=== PATIENT | female | born 1940 | race Caucasian/White ===

== ENCOUNTER → 2016-05-23 | Outpatient (CLI) | payer MEDICARE ==
[~2016-05-23] VITALS: Ht 164.6 cm; Wt 86.3 kg
[~2016-05-23] MED LIST: AMIO100T4 PO; AMIO200T7 PO; CALC-52 PO; CALC600T12 PO; CHOL100018 PO; CYAN1TAB46 PO; CYAN250T PO; DABI150C PO; ESTRPATC4 TD; FERR-70 PO; LEVO75TA10 PO; METO-64 PO; OXYB5SYR2 PO; SIMV20TA80 PO
== END ==
LOC: RC 12:28
PROVIDERS: ATTEND Internal Medicine Cardiovascular Disease
DX: J98.8 Other specified respiratory disorders (principal); R06.02 Shortness of breath
CPT/HCPCS: 94060; 94726

== ENCOUNTER 2016-06-14 10:41 | Day surgery (SDC) | payer MEDICARE ==
[~2016-06-14] VITALS: Ht 166.4 cm; Wt 81.0 kg
[2016-06-14] VITALS (7 sets, daily range): BP systolic 156–192; BP diastolic 40–74; PULSE 57–63; RESP 12–20; TEMP 97–98.6; O2SAT 92–99; Ht 166.4 cm; Wt 81.0 kg
[~2016-06-14 10:41] MED LIST changes: -AMIO100T4 PO; -CALC600T12 PO; -CYAN1TAB46 PO; -ESTRPATC4 TD; +LIDOCAINE 1% (10mg/ml) 2ml SDV INJ ONE; +LR 1,000 ML IV SCH
--- NOTE | 2016-06-14 12:28 | ANESPREOP ---
Anesthesia Record Date and Time DATE: 06/14/16 TIME: 12:26 Proposed Surgical Procedure COLONOSCOPY & EGD NPO since: mn Allergies: Coded Allergies: No Known Allergies (Unverified , 09/04/11) Ht/Wt/BMI Height: 5 ' 5.50 " Weight: 81.000 kg BMI: 29.3 kg/m2 Vital Signs Date Time Temp Pulse Resp B/P Pulse Ox O2 Delivery O2 Flow Rate FiO2 06/14/16 11:20 14 06/14/16 11:04 98.6 63 192/74 92 Room Air Medications Inpatient Medications Current Medications Medications (Trade) Dose Ordered Sig/Malvin Start Time Stop Time Status Last Admin Dose Admin Lactated Ringer's (Lactated Ringers) 1,000 ml @ 50 mls/hr Q20H 06/14/16 07:00 Amiodarone HCl (Pacerone) 200 Mg Tablet, 200 MG PO DAILY Last Taken: on 06/13/160 Calcium Carbonate (Calcium) 500 Mg Tablet, 1 TAB PO DAILY, (Reported) Last Taken: on 06/12/162099 Cholecalciferol (Vitamin D3) 1,000 Unit Tablet , 1 TAB PO DAILY, (Reported) Last Taken: on 06/12/162099 Cyanocobalamin (Vitamin B-12) (Vitamin B-12) 250 Mcg Tablet, 1 TAB PO DAILY, (Reported) Last Taken: on 06/12/162099 Dabigatran Etexilate Mesylate (Pradaxa) 150 Mg Capsule, 1 CAP PO BID, (Reported) TAKE WITH FULL GLASS OF WATER. Do not break, chew, open cap. Last Taken: on 06/06/16 Ferrous Sulfate (Ferrous Sulfate) 325 Mg Tablet, 1 TAB PO WB, (Reported) BEST WITH FOOD. Last Taken: on 06/12/16 Levothyroxine Sodium (Levothyroxine Sodium) 75 Mcg Tablet, 75 MCG PO ACB, (Reported) Once daily before breakfast. Last Taken: on 06/13/16 0700 Metoprolol Succinate (Toprol Xl) 50 Mg Tab.sr.24h, 50 MG PO HS, (Reported) Last Taken: on 06/13/16 2130 Oxybutynin (Oxybutynin Chloride) 5 Mg/5 Ml Syrup, 5 MG PO DAILY, (Reported) Last Taken: on 06/12/162099 Simvastatin (Zocor) 20 Mg Tablet, 20 MG PO PC, (Reported) Last Taken: on 06/13/162129 Currently on Beta Kaveh: Yes Beta Kaveh Last Taken: 06/13/162099 Medical/Surgical History Anesthesia PMH: Reports: *Hypertension (controlled with meds), Cardiac Arrythmia (history of A Fib.), Clotting Problems (RECENT ANTI-COAGULATION WITH PRADAXA, HELD at this time ), Hyperlipidemia, Thyroid Disease (hypothyroidism) Smoking Status: Former smoker Has pt. smoked today?: No # of Packs per Day: 1 # of Years: 35 Use Chewing Tobacco?: No Second Hand Exposure: No Substance Use Type: does not use Alcohol Intake: none HX of Last Menstrual Period: ABD. HYST. Past Surgical History Orthopedic Surgeries: No Abdominal Surgeries: Yes - TANJA, APPY,ABD. HYST. Genitourinary Surgeries: No Cardiac Surgeries: Yes - CARDIOVERSION Endocrine Surgeries: No Reproductive Surgeries: Yes - ABD. HYST. , OPEN EXC. BIOPSY OF LT BREAST FIBROCYSCTIC MASS Neurological Surgeries: Yes - L eye; repair hole in retina Ear Surgeries: No Nose Surgeries: No Throat Surgeries: No Other Surgeries: Yes - EXC. OF LIPOMA, COLONOSCOPY Anesthesia Adverse Reactions: FOUND none Family Hx of Anesthesia Advers: none Hx of Motion Sickness: No Physical Exam Respiratory: Bilat breath sounds equal, Lungs clear Cardiovascular: FOUND Regular rate, rhythm Airway Assessment Mallampati Score: I TMD: 3 Fingerbreadths Neck Extension: Fair Teeth: Upper Dentures, Lower Dentures ASA: 3 Plan Anesthesia Plan: TIVA, LMA, GETA Discussion Discussed risks/options/alternatives of anesthesia and questions answered. Patient consents. Nursing pain assessment noted. Present: Family Member Attestation Statement Prior to the delivery of any anesthetic medication, I examined the patient, developed the plan, obtained the patient's consent and discussed the risk and benefits of the procedure with the patient/guardian. BHAVIN HUNTLEY CRNA Jun 14, 2016 12:28
[2016-06-14] MEDS ORDERED: BENZOCAINE 20% Top. Anesth. SPRAY UD ONE (13:26)
[2016-06-14] MEDS ORDERED: LIDOCAINE VISCOUS 2% Oral Soln 15ml UD ONE (13:26)
[2016-06-14] MEDS ORDERED: PROPOFOL 500mg 50 ML IV ONE (13:32)
--- NOTE | 2016-06-14 14:27 | ANESPO ---
Post-Op Note Date 06/14/16 Time: 14:25 Status Pt Participated in Evaluation: Pt participated in person Vital Signs Date Time Temp Pulse Resp B/P Pulse Ox O2 Delivery O2 Flow Rate FiO2 06/14/16 14:14 97.0 59 12 168/71 98 Mask 6.00 Respiratory Function: Airway patent, Regular respirations Cardiovascular Function: Regular pulse Mental Status: Alert/oriented Pain Level Intensity: 0 Hydration: Taking po fluids Complications during Recovery None apparent Follow-Up Instructions Instructions Per Surgeon EDUAR PISANO [employer] STUDENT Jun 14, 2016 14:26
--- NOTE | 2016-06-14 14:32 | GSPOSTPROC ---
Immediate Operative Note DATE: 06/14/16 TIME: 14:31 Postop Diagnosis: Anemia Surgical Procedure: EGD, C-scope Surgeon: Gilles ASA: 3 ABBY GRANADOS MD Jun 14, 2016 14:32
--- NOTE | 2016-06-15 10:21 | OPNOTEF ---
DATE 06/14/2016 PREOPERATIVE DIAGNOSES 1. Anemia. 2. Colonic diverticulosis. 3. Internal and external hemorrhoids. POSTOPERATIVE DIAGNOSES 1. Anemia. 2. Colonic diverticulosis. 3. Internal and external hemorrhoids. OPERATION Esophagogastroduodenoscopy and total colonoscopy SURGEON Dr. Gilles CARNES [facility] ASA CLASS 3 FINDINGS No abnormalities were found at the upper gastrointestinal tract.. Findings were normal at the esophagus, stomach and duodenum. No source for bleeding which would lead to anemia was found at the upper gastrointestinal tract. There were no colon or rectal tumors. There were no colon or rectal polyps. There were no colonic angiodysplasia lesions. There was no inflammatory bowel disease at the colon. The patient does have extensive left-sided colonic diverticulosis. The patient does have some internal and external hemorrhoids. No bright red blood or old blood was seen at the colon or rectum. No source for bleeding which would lead to anemia was found at the colon or rectum at total colonoscopy. No source for the anemia was found at either esophagogastroduodenoscopy or colonoscopy today. DESCRIPTION OF OPERATION The patient was brought to the endoscopy room. The patient was placed on a cart in the endoscopy room. The patient was placed in left lateral recumbent position on the cart in the endoscopy room. The Olympus upper GI endoscope was used. The upper GI endoscope was introduced into the esophagus. The upper GI endoscope was advanced down through the esophagus and stomach and into the duodenum. The upper GI endoscope was then withdrawn from the duodenum back into the stomach. The upper GI endoscope was retroflexed and the gastroesophageal junction was viewed from below. The upper GI endoscope was straightened out. Stomach was examined further. The upper GI endoscope was then withdrawn out through the stomach and esophagus and removed from the patient. The patient was kept in left lateral recumbent position on the cart in the endoscopy room. The patient continued to receive intravenous sedation medication administered by the nurse blunger loader. Total colonoscopy was performed. The Olympus colonoscope was used. The colonoscope was introduced into the rectum. The colonoscope was advanced up through the rectum and colon all the way up to the cecum. The appendiceal orifice was visualized. The ileocecal valve was visualized. The colonoscope was then withdrawn out through the colon and rectum and removed from the patient. Digital rectal examination was performed. Findings throughout the procedure were as described above. The patient did continue to receive intravenous sedation medication administered by the nurse blunger loader throughout the operation. The patient did tolerate the operation well. RECOMMENDATION Followup colonoscopy again in 10 years. JESSICA
== END 2016-06-14 15:15 | disposition home or self-care (01) ==
LOC: SCU 10:41
PROVIDERS: ATTEND Surgery
DX: D64.9 Anemia, unspecified (principal); K57.30 Diverticulosis of large intestine without perforation or abscess without bleeding; K64.8 Other hemorrhoids; K64.4 Residual hemorrhoidal skin tags; I10 Essential (primary) hypertension; E78.5 Hyperlipidemia, unspecified; I48.2 Chronic atrial fibrillation; Z79.899 Other long term (current) drug therapy; Z79.02 Long term (current) use of antithrombotics/antiplatelets; Z87.891 Personal history of nicotine dependence

== ENCOUNTER → 2016-06-20 | Outpatient (CLI) | payer MEDICARE ==
[~2016-06-20] MED LIST changes: -LIDOCAINE 1% (10mg/ml) 2ml SDV INJ ONE; -LR 1,000 ML IV SCH
--- NOTE | 2016-06-20 09:48 | DI ---
INDICATION: ITS.REASON: R06.02 SHORTNESS OF BREATH PROCEDURE: CHEST 2-VIEWS UPRIGHT (PA \T\ LAT) Encounter: Initial COMPARISON: Two-view chest, 10/07/2014 FINDINGS: There is subtle infiltrate suspected in the right perihilar projection. This extends somewhat into the right base. This may be of a groundglass nature. There is no pleural effusion or pneumothorax. The heart size, mediastinal contours and pulmonary vascularity are within normal limits. There are advanced degenerative changes of the spine. 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 IMPRESSION: Subtle right perihilar infiltrate suspected. Follow-up warranted. .
== END ==
LOC: IMA 09:20
PROVIDERS: ATTEND Internal Medicine Cardiovascular Disease
DX: R91.8 Other nonspecific abnormal finding of lung field (principal); R06.02 Shortness of breath

== ENCOUNTER → 2016-06-29 | Outpatient (CLI) | payer MEDICARE ==
[2016-06-29 15:34] LABS: BLOOD, URINE 3+ (NEGATIVE); COLOR,URINE YELLOW (YELLOW); LEUKOCYTE ESTERASE ,URINE 2+ (NEGATIVE); NITRITE,URINE NEGATIVE (NEGATIVE); UROBILINOGEN,URINE 0.2 EU/DL (NORMAL)
[2016-06-29 15:40] LABS: BACTERIA,URINE NONE SEEN (NEGATIVE)
== END ==
LOC: LABN 15:19
PROVIDERS: ATTEND Internal Medicine Medical Oncology
DX: D50.9 Iron deficiency anemia, unspecified (principal)
CPT/HCPCS: 81001

== ENCOUNTER → 2016-08-01 | Outpatient (CLI) | payer MEDICARE ==
--- NOTE | 2016-08-01 10:50 | DI ---
Indication: ITS.REASON: D50.9 Iron deficiency anemia, unspecified; E83.19 Other di; R71.0 PROCEDURE: US RENAL: Encounter: Initial Comparison: None Technique: Grayscale and color Doppler sonographic imaging of both kidneys was performed. FINDINGS: Both kidneys are present with normal cortical thickness and echogenicity. No evidence for collecting system dilatation, contour deforming mass, nephrolithiasis, or abnormal perinephric fluid collection. The right kidney measures 10.7.4.3.5.8 cm in length, and the left kidney measures 10.9.4.8.4.9 cm in length. Color Doppler imaging does not demonstrate any vascular abnormality. Both arterial and venous flow is documented. IMPRESSION: Normal renal sonogram. .
== END ==
LOC: IMA 09:41
PROVIDERS: ATTEND Internal Medicine Medical Oncology
DX: D50.9 Iron deficiency anemia, unspecified (principal)

== ENCOUNTER → 2016-08-10 | Outpatient (CLI) | payer MEDICARE ==
[2016-08-10 11:18] LABS: BASOPHILS % (AUTO) 0.5 % (0-2); BLOOD, URINE NEGATIVE (NEGATIVE); COLOR,URINE YELLOW (YELLOW); EOSINOPHILS # (AUTO) 0.4 T/MM3 (0-0.5); EOSINOPHILS % (AUTO) 6.3 % (0-4); HCT - HEMATOCRIT 42.6 % (36-46); HGB - HEMOGLOBIN 13.6 GM/DL (12-16); IMMATURE GRANULOCYTE # (AUTO) 0.01 T/MM3 (0.00-0.03); IMMATURE GRANULOCYTE % (AUTO) 0.2 % (0.0-0.5); LEUKOCYTE ESTERASE ,URINE NEGATIVE (NEGATIVE); LYMPHOCYTES # (AUTO) 0.9 T/MM3 (1-4.8); LYMPHOCYTES % (AUTO) 16.1 % (23-45); MEAN CORPUSCULAR HGB 28.6 UUG (26-34); MEAN CORPUSCULAR HGB CONC(MCHC 31.9 GM/DL (31-37); MEAN CORPUSCULAR VOLUME 89.7 UM3 (80-100); MEAN PLATELET VOLUME 10.7 UM3 (9.4-12.4); MONOCYTES # (AUTO) 0.5 T/MM3 (0-0.8); MONOCYTES % (AUTO) 9.4 % (0-9.0); NEUTROPHILS #(AUTO)-ABSOLUTE 3.9 T/MM3 (1.8-7.7); NEUTROPHILS % (AUTO) 67.5 % (33-66); NITRITE,URINE NEGATIVE (NEGATIVE); RED BLOOD COUNT 4.75 M/MM3 (4.00-5.20); WBC - WHITE BLOOD COUNT 5.7 T/MM3 (4.5-11.0)
[2016-08-12 02:49] LABS: FERRITIN 25.7 NG/ML (11-264)
== END ==
LOC: LAB 10:41
PROVIDERS: ATTEND Internal Medicine Medical Oncology
DX: D50.9 Iron deficiency anemia, unspecified (principal)
CPT/HCPCS: 36415; 81003; 82728; 83540; 83550; 85025

== ENCOUNTER 2017-11-13 15:46 | Observation (INO) ==
--- NOTE | 2017-11-13 16:17 | Emergency Department Report ---
Asthma HPI - General Chief Complaint: Dizziness <Christine Loza 11/13/17 16:19> Stated Complaint: soa, dizzy <Christine Loza 11/13/17 16:19> Source: patient <Christine Loza 11/13/17 16:19> Mode of arrival: ambulatory <Christine Loza 11/13/17 16:19> Limitations: no limitations <Christine Loza 11/13/17 16:19> - History of Present Illness HPI Narrative: Pt presents a couple of hours after she became SOA and developed a headache toward the end of her swim class this afternoon. Pt has a history of A fib and has been cardioverted twice in the past. She states when she is in A fib she just "doesn't feel well" but does not necessarily have specific symptoms of diaphoresis or palpitations. Pt states after class she drove home and tried to rest. When her daughter arrived and she was getting ready to come to the ER she again began to have SOA. Pt denies chest pain, cough, nausea, vomiting, diarrhea , palpitations, diaphoresis, or recent illness. Pt still does have a slight headache. <Christine Loza 11/13/17 16:19> MD complaint: shortness of breath <Christnie Loza 11/13/17 16:19> Onset (ago): hour(s) <Christine Loza 11/13/17 16:19> Context: exercise <Christine Loza 11/13/17 16:19> - Related Data Home Medications Medication Instructions Recorded Confirmed Aspirin/Acetaminophen/Caffeine 1 tab PO Q4H PRN 09/08/16 11/13/17 [Excedrin Extra Strength Caplet] Oxybutynin Chloride 5 mg PO HS 09/08/16 11/13/17 Amiodarone HCl 200 mg PO HS 11/13/17 11/13/17 Calcium Carbonate [Calcium] 500 mg PO DAILY 11/13/17 11/13/17 Cholecalciferol (Vitamin D3) 1,000 unit PO DAILY 11/13/17 11/13/17 [Vitamin D3] Cyanocobalamin (Vitamin B-12) 250 mcg PO DAILY 11/13/17 11/13/17 [Vitamin B-12] Dabigatran [Pradaxa] 150 mg PO BID 11/13/17 11/13/17 Levothyroxine Sodium 75 mcg PO DAILY 11/13/17 11/13/17 Lisinopril [Prinivil] 10 mg PO HS 11/13/17 11/13/17 Metoprolol Succinate [Toprol Xl] 50 mg PO HS 11/13/17 11/13/17 Omeprazole Magnesium [Prilosec Otc] 20 mg PO DAILY 11/13/17 11/13/17 Simvastatin 20 mg PO HS 11/13/17 11/13/17 <Christine Loza 11/13/17 16:19> Allergies Allergy/AdvReac Type Severity Reaction Status Date / Time No Known Allergies Allergy Verified 11/13/17 16:38 <Christine Loza 11/13/17 16:19> Review of Systems All systems: reviewed and negative except as stated <Christine Loza 16:19> Constitutional: Reports: as per HPI <Christine Loza 11/13/17 16:19> Cardiovascular: Reports: as per HPI <Christine Loza 11/13/17 16:19> Respiratory: Reports: as per HPI <Christine Loza 11/13/17 16:19> Gastrointestinal: Reports: as per HPI <Christine Loza 11/13/17 16:19> Neurological: Reports: as per HPI <Christine Loza 11/13/17 16:19> [facility] Patient Stated Medical History Cataracts Yes Cardiac Arrhythmia Yes: A Fib history Heart Murmur Yes Hypertension Yes Sleep Apnea No <Christine Loza 11/13/17 16:19> Surgical History: Multiple cardioversions for atrial fibrillation. Hysterectomy with bilateral salpingo-oophorectomy. That he zero lysis. Multiple lipoma removals. Multiple colonoscopies. GRACE for cardioversion < Christine Loza 11/13/17 16:19> - Social History Smoking status: Former smoker <Christine Loza 11/13/17 16:19> second hand exposure: No <Christine Loza 11/13/17 16:19> Substance use type: does not use <Christine Loza 11/13/17 16:19> Alcohol intake frequency: does not drink <Christine Loza 11/13/17 16:19> Does patient use chewing tobacco?: No <Christine Loza 11/13/17 16:19> Physical Exam - Limitations Limitations: no limitations <Christine Loza 11/13/17 16:19> - General General appearance: alert, in no apparent distress <Christine Loza 11/13 16:19> - Normal Exams: Head:: Normocephalic without trauma <Christine Loza 11/13/17 16:19> Eyes:: Pupils are PERRLA w/ EOMI <Christine Loza 11/13/17 16:19> Neck:: Full range of motion <Christine Loza 11/13/17 16:19> Chest/Respirations:: Clear all chang, with good airflow, and symmetry bilaterally <Christine Loza 11/13/17 16:19> Cardiovascular:: Regular rate and rhythm, without murmur or gallop, Pulses 2+ all extremities, capillary refill, <2 seconds all extremities <Christine Loza 11/13/17 16:19> Abdomen:: Bowel sounds positive, soft, non-tender, non-distended <Christine Loza 11/13/17 16:19> Musculoskeletal:: No tenderness, or deformity noted, good range of motion, all extremities <Christine Loza 11/13/17 16:19> Integumentary:: No rashes <Christine Loza 11/13/17 16:19> Neurological:: Patient is alert, and oriented, cranial nerves, motor/sensory/ cerebellar, exams w/o gross deficits, to observation <Christine Loza 16:19> Psychiatric:: Patient exhibits, appropriate attention, emotion and affect < Christine Loza 11/13/17 16:19> Course Vital Signs Temperature 98.2 F 08/20/18 15:47 Pulse Rate 68 11/13/17 15:47 Respiratory Rate 20 11/13/17 15:47 Blood Pressure 186/82 H 11/13/17 15:47 Pulse Oximetry 96 11/13/17 15:47 Temperature 98.2 F 11/13/17 15:47 Pulse Rate 57 L 11/13/17 18:30 Respiratory Rate 20 11/13/17 18:30 Blood Pressure 184/82 H 11/13/17 18:30 Pulse Oximetry 96 11/13/17 18:30 <Christine Loza 11/13/17 16:19> Dyspnea - MDM Narrative Medical decision making narrative: Lab, EKG, and X ray results reviewed. Troponin repeated and found to be elevated. Dr Jaimes notified and at bedside. Pt to be admitted observation. Will obtain CTA and start Lovenox per Dr Jaimes request. Plan discussed with pt who voices understanding <Christine Loza 11/13/17 19:12> - Differential Diagnosis Differential diagnosis: Likely: Acute asthmatic bronchitis (atrial fib, AMI), Pneumonia, COPD exacerbation <Christine Loza 11/13/17 16:19> - Lab Data Attestation: I reviewed the patient's lab results. <Christine Loza 11/13 19:12> Result diagrams: 11/13/17 16:37 11/13/17 16:37 <Christine Loza 11/13/17 16:19> Lab Results 11/13/17 11/13/17 11/13/17 Range/Units 16:37 16:37 18:14 WBC 8.5 (4.5-11.0) T/MM3 RBC 4.23 (4.00-5.20) M/MM3 Hgb 10.1 L (12-16) GM/DL Hct 33.9 L (36-46) % MCV 80.1 (80-100) UM3 MCH 23.9 L (26-34) UUG MCHC 29.8 L (31-37) GM/DL RDW Std Deviation 45.7 (36.9-50.2) FL Plt Count 203 (130-400) T/MM3 MPV 11.3 (9.4-12.4) UM3 Immature Gran % (Auto) 0.2 (0.0-0.5) % Neut % (Auto) 80.5 H (33-66) % Lymph % (Auto) 9.7 L (23-45) % [place] % (Auto) 7.2 (0-9.0) % Eos % (Auto) 2.0 (0-4) % Baso % (Auto) 0.4 (0-2) % Neut # (Auto) 6.9 (1.8-7.7) T/MM3 Lymph # (Auto) 0.8 L (1-4.8) T/MM3 [place] # (Auto) 0.6 (0-0.8) T/MM3 Eos # (Auto) 0.2 (0-0.5) T/MM3 Baso # (Auto) 0.0 (0-0.2) T/MM3 Abs Immat Gran (auto) 0.02 (0.00-0.03) T/MM3 Turbidity < 20 (0-20) Sodium 143 (136-146) MEQ/L Potassium 4.1 (3.6-5) MEQ/L Chloride 106 (98-107) MEQ/L Carbon Dioxide 26 (22-30) MEQ/L Anion Gap 11 (5-15) meq/L BUN 24.0 H (7-17) MG/DL Creatinine 0.9 (0.7-1.2) mg/dL Estimated Creat Clear 51 (>50) mL/min GFR Calculation 61 (>60) mL/min BUN/Creatinine Ratio 27 H (6-26) RATIO Glucose 111 H (65-110) MG/DL Calculated Osmolality 280 (261-280) MOSM/KG Calcium 9.5 (8.4-10.2) MG/DL Total Bilirubin 0.40 (0.20-1.30) MG/DL Icterus Index < 2 (0-7) AST 27 (14-36) U/L ALT 20 (1-35) U/L Alkaline Phosphatase 69 (38-126) U/L Troponin I 0.037 0.054 (0-0.12) ng/ml Total Protein 7.3 (6.3-8.2) g/dL Albumin 4.3 (3.5-5.0) g/dL Globulin 3.0 (2.4-3.6) G/DL Albumin/Globulin Ratio 1.4 (1.1-2.2) RATIO Specimen Hemolysis 19 < 15 (0-25) <Christine Loza 11/13/17 19:12> - Radiology Data Attestation: I reviewed the patient's radiology results. <Christine Loza 11/13/17 19:12> - EKG Data EKG #1 EKG attestation: Yes: I reviewed and interpreted this EKG. <Christine Loza 11/13/17 19:12> Yes: I reviewed and interpreted this EKG. [facility] 17:10> EKG shows normal: sinus rhythm, axis, intervals, QRS complexes, ST-T waves < July,[facility] 11/13/17 17:10> Rate [ED.COU.EKR]: normal <July,[facility] 11/13/17 17:10> P waves: LAE <July,[facility] 11/13/17 17:10> Interpretation: no acute changes <July,[facility] 11/13/17 17:10> Disposition Clinical Impression: Elevated troponin Dyspnea Qualifiers: Dyspnea type: other forms of dyspnea Qualified Code(s): R06.09 - Other forms of dyspnea <Christine Loza 11/13/17 19:12> Disposition: 02 To [facility] <Christine Loza 11/13/17 19:12> Condition: Stable <Christine Loza 11/13/17 19:12> Instructions: <Christine Loza 11/13/17 16:19> Prescriptions: No Action Oxybutynin Chloride 5 mg PO HS Lisinopril [Prinivil] 10 mg PO HS Amiodarone HCl 200 mg PO HS Levothyroxine Sodium 75 mcg PO DAILY Cyanocobalamin (Vitamin B-12) [Vitamin B-12] 250 mcg PO DAILY Calcium Carbonate [Calcium] 500 mg PO DAILY Simvastatin 20 mg PO HS Dabigatran [Pradaxa] 150 mg PO BID Metoprolol Succinate [Toprol Xl] 50 mg PO HS Omeprazole Magnesium [Prilosec Otc] 20 mg PO DAILY Aspirin/Acetaminophen/Caffeine [Excedrin Extra Strength Caplet] 1 tab PO Q4H PRN PRN Reason: Pain Cholecalciferol (Vitamin D3) [Vitamin D3] 1,000 unit PO DAILY <Christine Loza 11/13/17 16:19> Referrals: Lise Arriaza, [Primary Care Provider] - <Christine Loza 11/13/17 16:19> Forms: <Christine Loza 11/13/17 16:19> Time of Disposition: 19:12 <Christine Loaz 11/13/17 19:12> - Seen By: midlevel <Christine Loza 11/13/17 19:12>
[2017-11-13] MEDS: ACETAMINOPHEN 500 MG TABLET PO PRN (16:25)
[2017-11-13] MEDS: SALINE FLUSH 10ml SYRINGE IVF PRN ×3 (16:35→21:29)
--- NOTE | 2017-11-13 16:36 | XRay Report ---
EXAM: XR chest 2V COMPARISON: 06/20/2016. 10/07/2014. HISTORY: SOA . FINDINGS:EKG leads and wires project over the chest. The cardiomediastinal silhouette is within limits of normal. The pulmonary vascularity appears unremarkable. Increased interstitial markings are noted at the mid to lower lungs which appear more conspicuous compared to 10/07/2014 and slightly more conspicuous than 06/20/2016. This could be related to pneumonitis or early congestion. There is no evidence for pleural effusion. There is no evidence for a pneumothorax. Endplate sclerosis and spurring is seen of the thoracic spine. IMPRESSION: Increased interstitial markings are seen at the mid to lower lungs which could be related to pneumonitis or early congestive change. Clinical correlation is suggested. [place] [facility] [place]
[2017-11-13] MEDS ORDERED: ENOXAPARIN 100 MG/ML INJECTION SQ ONE (19:05)
[2017-11-13] MEDS ORDERED: SALINE FLUSH 10ml SYRINGE ONE (19:26)
[2017-11-13] MEDS ORDERED: IOHEXOL 350mg/ml 75ml INJECTION ONE (19:26)
[2017-11-13 20:14] VITALS: BMI 31.7
[2017-11-13] MEDS ORDERED: KETOROLAC 30 MG/ML INJECTION IVP ONE (20:53)
[2017-11-13] MEDS ORDERED: SIMVASTATIN 20 MG TABLET PO SCH (21:00)
[2017-11-13] MEDS ORDERED: AMIODARONE 200 MG TABLET PO SCH (21:00)
[2017-11-13] MEDS ORDERED: LISINOPRIL 10 MG TABLET PO SCH (21:00)
[2017-11-13] MEDS: APAP/ASA/Caffeine 1 TAB PO PRN (21:27)
[2017-11-14] MEDS: ACETAMINOPHEN 500 MG TABLET PO PRN (03:23)
[2017-11-14] MEDS: APAP/ASA/Caffeine 1 TAB PO PRN ×2 (07:41→12:08)
--- NOTE | 2017-11-14 08:31 | CT Scan Report ---
Indication: SOA PROCEDURE: CT angio pulm emboli: Encounter: Initial Comparison: None Technique: Axial CT pulmonary angiographic phase images were performed through the chest after the administration of intravenous contrast. Coronal and Sagittal MIP reconstructed images were created and reviewed. Automated Exposure Control and Iterative Reconstruction dose reducing techniques were utilized. Contrast: Omnipaque 350 73 mL Findings: Pulmonary arteries: Exam is diagnostic to the subsegmental pulmonary arterial level. No filling defects identified to suggest a pulmonary embolus. Pulmonary arteries are enlarged suggesting pulmonary artery hypertension. Other findings: Groundglass opacities seen in the lower lobes. No lobar pneumonia. No pneumothorax or effusion. The central airways are patent. No axillary or mediastinal adenopathy. Heart is enlarged. No pericardial effusion. The upper abdomen shows no acute findings. Impression: No pulmonary embolus. Lower lobe groundglass infiltrates could represent mild edema or atypical/viral pneumonia. There is a preliminary report by virtual radiologic. .
[2017-11-14] MEDS ORDERED: CALCIUM CARBONATE 500 MG TABLET PO SCH (09:00)
[2017-11-14] MEDS ORDERED: CYANOCOBALAMIN (B-12) 500mcg TABLET PO SCH (09:00)
[2017-11-14] MEDS ORDERED: OMEPRAZOLE 20 MG CAPSULE PO SCH (09:00)
--- NOTE | 2017-11-14 10:41 | Cardiology History & Physical ---
History of Present Illness Chief complaint: SOA HPI: Cherry is a 76 year old female who is well known to Dr. Jaimes's practice with a history of PAF, nonrheumatic and tricuspid insufficiency, carotid artery stenosis, HTN and HLD who presented to the ED after she became SOA and developed a headache toward the end of her swim class. She denied chest pain, cough, nausea, vomiting, diarrhea, palpitations, diaphoresis, or recent illness. EKG showed SR, LAE. Troponin X2 in ED were negative. CTA for PE showed no pulmonary embolus, lower lobe ground glass infiltrates could represent mild edema or atypical/viral pneumonia. Dr. Jaimes was consulted and examined her, by exam she has moderate . She was admitted for observation and further evaluation of and Dyspnea. Review of Systems - Constitutional Constitutional: Absent: chills, fatigue, fever(s) - EENMT Eyes: Absent: change in vision Balance: Absent: vertigo Mouth/Throat: Absent: sore throat - Cardiovascular Cardiovascular: Present: dyspnea on exertion, heart murmur. Absent: chest pain , palpitations, syncope, orthopnea, edema Rhythm: Present: abnormal rhythm Vascular: Absent: pedal edema - Respiratory Respiratory: Present: dyspnea, dyspnea on exertion. Absent: cough - Gastrointestinal Gastrointestinal: Absent: abdominal pain, diarrhea, nausea, vomiting - Genitourinary Genitourinary: Absent: dysuria - Integumentary/Breasts Integumentary: Absent: rash - Neurological Neurological: Absent: dizziness - Endocrine Endocrine: Absent: palpitations PFSH Patient Stated Medical History Cataracts Yes Cardiac Arrhythmia Yes: A Fib history Heart Murmur Yes Hypertension Yes Sleep Apnea No Surgical History: Multiple cardioversions for atrial fibrillation. Hysterectomy with bilateral salpingo-oophorectomy. That he zero lysis. Multiple lipoma removals. Multiple colonoscopies. GRACE for cardioversion Family History: Father - heart disease, in his 70s Mother - Arrhythmia, in her 80's - Social History Smoking status: Former smoker second hand exposure: No Substance use type: does not use Alcohol intake frequency: does not drink Does patient use chewing tobacco?: No Medications Home Medications Medication Instructions Recorded Confirmed Type Aspirin/Acetaminophen/Caffeine 1 tab PO Q4H PRN 09/08/16 11/13/17 History [Excedrin Extra Strength Caplet] Oxybutynin Chloride 5 mg PO HS 09/08/16 11/13/17 History Amiodarone HCl 200 mg PO HS 11/13/17 11/13/17 History Calcium Carbonate [Calcium] 500 mg PO DAILY 11/13/17 11/13/17 History Cholecalciferol (Vitamin D3) 1,000 unit PO DAILY 11/13/17 11/13/17 History [Vitamin D3] Cyanocobalamin (Vitamin B-12) 250 mcg PO DAILY 11/13/17 11/13/17 History [Vitamin B-12] Dabigatran [Pradaxa] 150 mg PO BID 11/13/17 11/13/17 History Levothyroxine Sodium 75 mcg PO DAILY 11/13/17 11/13/17 History Lisinopril [Prinivil] 10 mg PO HS 11/13/17 11/13/17 History Metoprolol Succinate [Toprol Xl] 50 mg PO HS 11/13/17 11/13/17 History Omeprazole Magnesium [Prilosec Otc] 20 mg PO DAILY 11/13/17 11/13/17 History Simvastatin 20 mg PO HS 11/13/17 11/13/17 History Allergies Allergy/AdvReac Type Severity Reaction Status Date / Time No Known Allergies Allergy Verified 11/13/17 16:38 Exam Vital signs: Temperature 97.9 F 11/14/17 00:32 Pulse Rate 53 L 11/14/17 08:00 Respiratory Rate 16 11/14/17 07:21 Blood Pressure 164/80 H 11/14/17 08:00 Pulse Oximetry 99 11/14/17 07:21 - Constitutional no acute distress, well nourished, cooperative - Routine HEENT Exam Head: Present: normocephalic ENT: Present: mucous membranes moist - Routine Neck Exam Absent: JVD, carotid bruit - Routine Chest/Breast/Axilla Exam Chest wall: Absent: tenderness - Routine Respiratory Exam Present: CTA bilaterally. Absent: dyspnea, rales, wheezes - Routine Cardiovascular Exam Present: RRR, murmur (I/) - Routine Abdominal Exam Present: soft, non tender - Routine Extremities Exam Present: no edema - Routine Skin Exam Present: intact, dry, warm - Routine Neurological Exam Present: alert, oriented X3 - Routine Psychiatric Exam Present: normal affect, normal thought process Results 11/14/17 03:55 11/14/17 03:55 Cardiac Enzymes 11/13/17 11/13/17 11/14/17 Range/Units 16:37 18:14 03:55 AST 27 (14-36) U/L Troponin I 0.037 0.054 0.039 (0-0.12) ng/ml CBC 11/13/17 11/14/17 Range/Units 16:37 03:55 WBC 8.5 6.2 (4.5-11.0) T/MM3 RBC 4.23 4.16 (4.00-5.20) M/MM3 Hgb 10.1 L 9.8 L (12-16) GM/DL Hct 33.9 L 32.9 L (36-46) % Plt Count 203 195 (130-400) T/MM3 Neut # (Auto) 6.9 4.1 (1.8-7.7) T/MM3 Lymph # (Auto) 0.8 L 1.0 (1-4.8) T/MM3 [place] # (Auto) 0.6 0.7 (0-0.8) T/MM3 Eos # (Auto) 0.2 0.4 (0-0.5) T/MM3 Baso # (Auto) 0.0 0.0 (0-0.2) T/MM3 Comprehensive Metabolic Panel 11/13/17 11/14/17 Range/Units 16:37 03:55 Sodium 143 142 (136-146) MEQ/L Potassium 4.1 4.1 (3.6-5) MEQ/L Chloride 106 108 H (98-107) MEQ/L Carbon Dioxide 26 25 (22-30) MEQ/L BUN 24.0 H 22.0 H (7-17) MG/DL Creatinine 0.9 0.8 (0.7-1.2) mg/dL Glucose 111 H 86 (65-110) MG/DL Calcium 9.5 9.3 (8.4-10.2) MG/DL AST 27 (14-36) U/L ALT 20 (1-35) U/L Alkaline Phosphatase 69 (38-126) U/L Total Protein 7.3 (6.3-8.2) g/dL Albumin 4.3 (3.5-5.0) g/dL Intake and Output 11/13/17 11/14/17 11/14/17 22:59 06:59 14:59 Intake Total 120 / 120 450 / 450 Output Total 600 / 600 350 / 350 Balance -480 / -480 100 / 100 Intake: Oral 120 / 120 450 / 450 Output: Urine 600 / 600 350 / 350 Other: Urine Appearance Clear Clear Urine Color Pale Yellow Yellow Urine Odor Normal Normal # Voids 1 1 Weight 190 lb 11.198 oz 187 lb 2.759 oz Patient Weight 11/15/17 06:59 Weight 187 lb 2.759 oz - Imaging and Cardiology Echo: pending Imaging & Cardiology Narrative: Date of Exam: 11/13/17 Ordering Provider: Christine Loza APRN Type of Exam(s): CT angio pulm emboli Reason for Exam(s): SOA Indication: SOA PROCEDURE: CT angio pulm emboli: Encounter: Initial Comparison: None Technique: Axial CT pulmonary angiographic phase images were performed through the chest after the administration of intravenous contrast. Coronal and Sagittal MIP reconstructed images were created and reviewed. Automated Exposure Control and Iterative Reconstruction dose reducing techniques were utilized. Contrast: Omnipaque 350 73 mL Findings: Pulmonary arteries: Exam is diagnostic to the subsegmental pulmonary arterial level. No filling defects identified to suggest a pulmonary embolus. Pulmonary arteries are enlarged suggesting pulmonary artery hypertension. Other findings: Groundglass opacities seen in the lower lobes. No lobar pneumonia. No pneumothorax or effusion. The central airways are patent. No axillary or mediastinal adenopathy. Heart is enlarged. No pericardial effusion. The upper abdomen shows no acute findings. Impression: No pulmonary embolus. Lower lobe groundglass infiltrates could represent mild edema or atypical/viral pneumonia. There is a preliminary report by virtual radiologic. . 11/14/17 10:41 11/14/17 10:43 Date of Exam: 11/13/17 Ordering Provider: Christine Loza APRN Type of Exam(s): XR chest 2V Reason for Exam(s): SOA EXAM: XR chest 2V COMPARISON: 06/20/2016. 10/07/2014. HISTORY: SOA . FINDINGS:EKG leads and wires project over the chest. The cardiomediastinal silhouette is within limits of normal. The pulmonary vascularity appears unremarkable. Increased interstitial markings are noted at the mid to lower lungs which appear more conspicuous compared to 10/07/2014 and slightly more conspicuous than 06/20/2016. This could be related to pneumonitis or early congestion. There is no evidence for pleural effusion. There is no evidence for a pneumothorax. Endplate sclerosis and spurring is seen of the thoracic spine. IMPRESSION: Increased interstitial markings are seen at the mid to lower lungs which could be related to pneumonitis or early congestive change. Clinical correlation is suggested. LOCATION OF DICTATION: [facility] . EKG interpretations - EKG EKG results cardiology: sinus rhythm - Blocks, axis, hypertrophy, ST abn Chamber hypertrophy or enlargement: left atrial enlargement or conduction defect Hospital Course This is a general summary of the patient's hospital course. For more details refer to the complete medical record. Time spent with patient: 25 - 35 minutes Resuscitation Status: Full Code Assessment and Plan - Assessment and Plan (1) Headache Current visit: Yes Status: Acute Has a history of headaches, current headache began last night is much worse than usual - Chronically anticoagulated on Pradaxa, given additional Lovenox 1mg/kg in the ED - CT head w, w/o contrast to rule out hemorrhage. (2) Dyspnea Current visit: Yes Status: Acute Acute dyspnea following swim class - O2 saturation WNL on room air - CTA negative for PE - CXR congestive changes? - BNP 3210 - Denies chest pain, troponin negative - 2D echo to evaluate known - Will discharge with PO Lasix daily to begin on - Lab in 1 week to monitor renal and electrolytes (3) Nonrheumatic aortic valve stenosis Current visit: Yes Status: Chronic - 2D echo to evaluate known - Last echo 01/2017: EF 55%, moderate , moderate TR - Continue current therapy (4) Non-rheumatic tricuspid valve insufficiency Current visit: Yes Status: Chronic - 2D echo to evaluate known - Last echo 01/2017: EF 55%, moderate , moderate TR - Continue current therapy (5) Paroxysmal atrial fibrillation Current visit: Yes Status: Chronic - SR on EKG and telemetry - Takes Amiodarone and Pradaxa - TSH and Mag WNL - Lower lobe ground glass infiltrates seen on CTA could be from Amiodarone - Stop Amiodarone, continue Pradaxa - Plan outpatient stress test for possible antiarrhythmic therapy on Flecainide in the future - Consider referral to EP for possible cardiac ablation (6) Occlusion and stenosis of bilateral carotid arteries Current visit: Yes Status: Chronic - Recent DCD stable, continue current therapy, routine monitoring (7) Essential (primary) hypertension Current visit: Yes Status: Chronic Sub optimal control. - Increase Lisinopril to 20mg daily - Add Lasix 40mg daily to start on - Lab in 1 week to monitor renal and electrolytes (8) Mixed hyperlipidemia Current visit: Yes Status: Chronic Takes Simvastatin, PCP manages
--- NOTE | 2017-11-14 14:34 | Echocardiogram ---
DATE OF PROCEDURE November 14, 2017 This is a two-dimensional echo with spectral Doppler, color-flow and M-mode. It was obtained in a patient with dyspnea. Left atrial dimension is increased. Left ventricular end-diastolic dimension is normal. Left ventricle wall thickness is mildly increased. LV systolic function is normal with ejection fraction of 70%. Right atrium is normal. Right ventricle is normal. Aortic root dimension is normal. Mitral annulus is calcified. Mitral valve leaflets are normal with mild mitral regurgitation. Aortic valve shows fibrocalcific changes. However, opening motion appears to be preserved. Transaortic velocities are increased with peak velocity of 2.59 meters/second with peak gradient of 27 and mean gradient of 15. Aortic valve area is calculated at 1.85 cm2. Tricuspid valve shows moderate tricuspid regurgitation with moderate pulmonary hypertension with estimated pulmonary artery systolic pressure of 54-59. Pulmonary valve shows no pulmonary insufficiency. There is no pericardial effusion. IMPRESSION 1. Normal LV systolic function with ejection fraction of 70%. 2. Left atrial dilation. 3. Mild concentric left ventricular hypertrophy. 4. Mitral annulus calcification with mild mitral regurgitation. 5. Mild aortic sclerosis versus mild aortic stenosis with a valve area of 1.85 cm2. 6. Moderate tricuspid regurgitation with moderate pulmonary hypertension with estimated pulmonary artery systolic pressure of 54-59. MTDD
--- NOTE | 2017-11-14 15:37 | CT Scan Report ---
Indication: headache on blood thinners PROCEDURE: CT head/brain wo con: Encounter: Initial Comparison: September 14, 2011 Technique: Axial CT images through the head were performed without contrast. Iterative Reconstruction dose reducing technique was utilized. FINDINGS: The ventricles are of normal size, shape, and contour for the patient's age. There are scattered areas of low attenuation in the white matter which most likely represent changes from chronic microvascular ischemia. The brainstem, cerebellum, and cerebral hemispheres otherwise have a normal morphology and CT attenuation. There is no evidence of midline displacement. No hemorrhage, signs of acute territorial stroke, mass effect, mass lesions, or edema is evident. The visualized portions of the skull base, midface, and calvarium demonstrate no abnormality. The paranasal sinuses are well aerated and free of significant disease. The tympanic and mastoid cavities appear normal. IMPRESSION: No acute intracranial abnormality or hemorrhage. .
[2017-11-14 16:33] VITALS: PULSE 55
--- NOTE | 2017-11-14 16:35 | Discharge Summary ---
Discharge Information Date of admission: 11/13/17 19:06 Anticipated date of discharge: 11/14/17 Attending Physician: Dariusz Jaimes MD Primary care physician: Lise Arriaza, DO - Discharge Diagnosis (1) Headache Status: Acute (2) Dyspnea Status: Acute (3) Nonrheumatic aortic valve stenosis Status: Chronic (4) Non-rheumatic tricuspid valve insufficiency Status: Chronic (5) Paroxysmal atrial fibrillation Status: Chronic (6) Occlusion and stenosis of bilateral carotid arteries Status: Chronic (7) Essential (primary) hypertension Status: Chronic (8) Mixed hyperlipidemia Status: Chronic External Problems Reviewed (CCD)?: Yes dyspnea, headache - Laboratory Labs: 11/14/17 03:55 11/14/17 03:55 History of Present Illness HPI: Cherry is a 76 year old female who is well known to Dr. Jaimes's practice with a history of PAF, nonrheumatic and tricuspid insufficiency, carotid artery stenosis, HTN and HLD who presented to the ED after she became SOA and developed a headache toward the end of her swim class. She denied chest pain, cough, nausea, vomiting, diarrhea, palpitations, diaphoresis, or recent illness. EKG showed SR, LAE. Troponin X2 in ED were negative. CTA for PE showed no pulmonary embolus, lower lobe ground glass infiltrates could represent mild edema or atypical/viral pneumonia. Dr. Jaimes was consulted and examined her, by exam she has moderate . She was admitted for observation and further evaluation of and Dyspnea. Hospital Course This is a general summary of the patient's hospital course. For more details refer to the complete medical record. Hospital course: Headache Current visit: Yes Status: Acute - Has a history of headaches, current headache began last night is much worse than usual - Chronically anticoagulated on Pradaxa, given additional Lovenox 1mg/kg in the ED - CT head w, w/o contrast to rule out hemorrhage. Dyspnea Current visit: Yes Status: Acute - Acute dyspnea following swim class - O2 saturation WNL on room air - CTA negative for PE - CXR congestive changes? - BNP 3210 - Denies chest pain, troponin negative - 2D echo to evaluate known - Will discharge with PO Lasix daily to begin on - Lab in 1 week to monitor renal and electrolytes Nonrheumatic aortic valve stenosis Current visit: Yes Status: Chronic - 2D echo to evaluate known - Last echo 01/2017: EF 55%, moderate , moderate TR - Continue current therapy Non-rheumatic tricuspid valve insufficiency Current visit: Yes Status: Chronic - 2D echo to evaluate known - Last echo 01/2017: EF 55%, moderate , moderate TR - Continue current therapy Paroxysmal atrial fibrillation Current visit: Yes Status: Chronic - SR on EKG and telemetry - Takes Amiodarone and Pradaxa - TSH and Mag WNL - Lower lobe ground glass infiltrates seen on CTA could be from Amiodarone - Stop Amiodarone, continue Pradaxa - Plan outpatient stress test for possible antiarrhythmic therapy on Flecainide in the future - Consider referral to EP for possible cardiac ablation Occlusion and stenosis of bilateral carotid arteries Current visit: Yes Status: Chronic - Recent DCD stable, continue current therapy, routine monitoring Essential (primary) hypertension Current visit: Yes Status: Chronic - Sub optimal control. - Increase Lisinopril to 20mg daily - Add Lasix 40mg daily to start on - Lab in 1 week to monitor renal and electrolytes Mixed hyperlipidemia Current visit: Yes Status: Chronic - Takes Simvastatin, PCP manages Exam Vital signs: Temperature 97.9 F 11/14/17 00:32 Pulse Rate 53 L 11/14/17 08:00 Respiratory Rate 16 11/14/17 07:21 Blood Pressure 164/80 H 11/14/17 08:00 Pulse Oximetry 99 11/14/17 07:21 - Constitutional no acute distress, well nourished, cooperative - Routine HEENT Exam Head: Present: normocephalic ENT: Present: mucous membranes moist - Routine Neck Exam Absent: JVD, carotid bruit - Routine Chest/Breast/Axilla Exam Chest wall: Absent: tenderness - Routine Respiratory Exam Present: dyspnea, CTA bilaterally. Absent: rales, wheezes - Routine Cardiovascular Exam Present: RRR, murmur (I/) - Routine Abdominal Exam Present: soft, non tender - Routine Extremities Exam Present: no edema, pulses intact - Routine Skin Exam Present: intact, dry, warm - Routine Neurological Exam Present: alert, oriented X3 - Routine Psychiatric Exam Present: normal affect, normal thought process Results 11/14/17 03:55 11/14/17 03:55 Cardiac Enzymes 11/13/17 11/13/17 11/14/17 Range/Units 16:37 18:14 03:55 AST 27 (14-36) U/L Troponin I 0.037 0.054 0.039 (0-0.12) ng/ml CBC 11/13/17 11/14/17 Range/Units 16:37 03:55 WBC 8.5 6.2 (4.5-11.0) T/MM3 RBC 4.23 4.16 (4.00-5.20) M/MM3 Hgb 10.1 L 9.8 L (12-16) GM/DL Hct 33.9 L 32.9 L (36-46) % Plt Count 203 195 (130-400) T/MM3 Neut # (Auto) 6.9 4.1 (1.8-7.7) T/MM3 Lymph # (Auto) 0.8 L 1.0 (1-4.8) T/MM3 [place] # (Auto) 0.6 0.7 (0-0.8) T/MM3 Eos # (Auto) 0.2 0.4 (0-0.5) T/MM3 Baso # (Auto) 0.0 0.0 (0-0.2) T/MM3 Comprehensive Metabolic Panel 11/13/17 11/14/17 Range/Units 16:37 03:55 Sodium 143 142 (136-146) MEQ/L Potassium 4.1 4.1 (3.6-5) MEQ/L Chloride 106 108 H (98-107) MEQ/L Carbon Dioxide 26 25 (22-30) MEQ/L BUN 24.0 H 22.0 H (7-17) MG/DL Creatinine 0.9 0.8 (0.7-1.2) mg/dL Glucose 111 H 86 (65-110) MG/DL Calcium 9.5 9.3 (8.4-10.2) MG/DL AST 27 (14-36) U/L ALT 20 (1-35) U/L Alkaline Phosphatase 69 (38-126) U/L Total Protein 7.3 (6.3-8.2) g/dL Albumin 4.3 (3.5-5.0) g/dL Intake and Output 11/14/17 11/14/17 11/14/17 06:59 14:59 22:59 Intake Total 450 / 450 Output Total 350 / 350 200 / 200 Balance 100 / 100 -200 / -200 Intake: Oral 450 / 450 Output: Urine 350 / 350 200 / 200 Other: Urine Appearance Clear Clear Urine Color Yellow Yellow Urine Odor Normal Normal # Voids 1 1 Weight 187 lb 2.759 oz Patient Weight 11/15/17 06:59 Weight 187 lb 2.759 oz - Imaging and Cardiology Imaging & Cardiology Narrative: = = = = = = = = = = = = = = = = = = = = = = = = = = = = = = = = = = = = = = = = = = = = = = = = = = = = = = = = = = = Date of Exam: 11/14/17 Ordering Provider: Kellie Deleon APRN Type of Exam(s): CT head/brain wo con Reason for Exam(s): headache on blood thinners Indication: headache on blood thinners PROCEDURE: CT head/brain wo con: Encounter: Initial Comparison: September 14, 2011 Technique: Axial CT images through the head were performed without contrast. Iterative Reconstruction dose reducing technique was utilized. FINDINGS: The ventricles are of normal size, shape, and contour for the patient's age. There are scattered areas of low attenuation in the white matter which most likely represent changes from chronic microvascular ischemia. The brainstem, cerebellum, and cerebral hemispheres otherwise have a normal morphology and CT attenuation. There is no evidence of midline displacement. No hemorrhage, signs of acute territorial stroke, mass effect, mass lesions, or edema is evident. The visualized portions of the skull base, midface, and calvarium demonstrate no abnormality. The paranasal sinuses are well aerated and free of significant disease. The tympanic and mastoid cavities appear normal. IMPRESSION: No acute intracranial abnormality or hemorrhage. 11/14/17 16:33 11/14/17 16:33 Date of Exam: 11/13/17 Ordering Provider: Christine Loza APRN Type of Exam(s): CT angio pulm emboli Reason for Exam(s): SOA Indication: SOA PROCEDURE: CT angio pulm emboli: Encounter: Initial Comparison: None Technique: Axial CT pulmonary angiographic phase images were performed through the chest after the administration of intravenous contrast. Coronal and Sagittal MIP reconstructed images were created and reviewed. Automated Exposure Control and Iterative Reconstruction dose reducing techniques were utilized. Contrast: Omnipaque 350 73 mL Findings: Pulmonary arteries: Exam is diagnostic to the subsegmental pulmonary arterial level. No filling defects identified to suggest a pulmonary embolus. Pulmonary arteries are enlarged suggesting pulmonary artery hypertension. Other findings: Groundglass opacities seen in the lower lobes. No lobar pneumonia. No pneumothorax or effusion. The central airways are patent. No axillary or mediastinal adenopathy. Heart is enlarged. No pericardial effusion. The upper abdomen shows no acute findings. Impression: No pulmonary embolus. Lower lobe groundglass infiltrates could represent mild edema or atypical/viral pneumonia. There is a preliminary report by virtual radiologic. . 11/14/17 10:41 11/14/17 10:43 Date of Exam: 11/13/17 Ordering Provider: Christine Loza APRN Type of Exam(s): XR chest 2V Reason for Exam(s): SOA EXAM: XR chest 2V COMPARISON: 06/20/2016. 10/07/2014. HISTORY: SOA . FINDINGS:EKG leads and wires project over the chest. The cardiomediastinal silhouette is within limits of normal. The pulmonary vascularity appears unremarkable. Increased interstitial markings are noted at the mid to lower lungs which appear more conspicuous compared to 10/07/2014 and slightly more conspicuous than 06/20/2016. This could be related to pneumonitis or early congestion. There is no evidence for pleural effusion. There is no evidence for a pneumothorax. Endplate sclerosis and spurring is seen of the thoracic spine. IMPRESSION: Increased interstitial markings are seen at the mid to lower lungs which could be related to pneumonitis or early congestive change. Clinical correlation is suggested. LOC[place]CT[place] [facility] [place]/14/17 16:33 Date of Exam: 11/14/17 Type of Exam(s): US echo doppler complete DATE OF PROCEDURE November 14, 2017 This is a two-dimensional echo with spectral Doppler, color-flow and M-mode. It was obtained in a patient with dyspnea. Left atrial dimension is increased. Left ventricular end-diastolic dimension is normal. Left ventricle wall thickness is mildly increased. LV systolic function is normal with ejection fraction of 70%. Right atrium is normal. Right ventricle is normal. Aortic root dimension is normal. Mitral annulus is calcified. Mitral valve leaflets are normal with mild mitral regurgitation. Aortic valve shows fibrocalcific changes. However, opening motion appears to be preserved. Transaortic velocities are increased with peak velocity of 2.59 meters/second with peak gradient of 27 and mean gradient of 15. Aortic valve area is calculated at 1.85 cm2. Tricuspid valve shows moderate tricuspid regurgitation with moderate pulmonary hypertension with estimated pulmonary artery systolic pressure of 54-59. Pulmonary valve shows no pulmonary insufficiency. There is no pericardial effusion. IMPRESSION 1. Normal LV systolic function with ejection fraction of 70%. 2. Left atrial dilation. 3. Mild concentric left ventricular hypertrophy. 4. Mitral annulus calcification with mild mitral regurgitation. 5. Mild aortic sclerosis versus mild aortic stenosis with a valve area of 1.85 cm2. 6. Moderate tricuspid regurgitation with moderate pulmonary hypertension with estimated pulmonary artery systolic pressure of 54-59. Discharge Plan - Med Rec/Dispo Referrals/Follow Up: Dariusz Jaimes MD [Physician] - 11/28/17 2:30 pm Prescriptions: New Lisinopril [Prinivil] 20 mg PO HS #30 tab Furosemide [Lasix] 40 mg PO DAILY #30 tab Continue Oxybutynin Chloride 5 mg PO HS Levothyroxine Sodium 75 mcg PO DAILY Cyanocobalamin (Vitamin B-12) [Vitamin B-12] 250 mcg PO DAILY Calcium Carbonate 500 mg PO DAILY Simvastatin 20 mg PO HS Dabigatran [Pradaxa] 150 mg PO BID Metoprolol Succinate [Toprol Xl] 50 mg PO HS Omeprazole Magnesium [Prilosec Otc] 20 mg PO DAILY Aspirin/Acetaminophen/Caffeine [Excedrin Extra Strength Caplet] 1 tab PO Q4H PRN PRN Reason: Pain Cholecalciferol (Vitamin D3) [Vitamin D3] 1,000 unit PO DAILY Discontinued Lisinopril [Prinivil] 10 mg PO HS Amiodarone HCl 200 mg PO HS - Disposition 01 Discharged Home, Self-Care - Dismissal Complete Discharge Instructions are:: Complete
[2017-11-14 16:37] VITALS: BP 164/71; RESP 18; TEMP 99.2; O2SAT 97
[2017-11-14] MEDS ORDERED: LISINOPRIL 20 MG TABLET PO SCH (21:00)
[2017-11-15] MEDS ORDERED: LEVOTHYROXINE 75 MCG TABLET PO SCH (06:30)
[2017-11-16] MEDS ORDERED: FUROSEMIDE 40 MG TABLET PO SCH (09:00)
== END 2017-11-14 18:20 | disposition home or self-care (01) ==
LOC: ED 15:46 → EDHOLD 15:46 → SRG 19:50
PROVIDERS: ADMIT Internal Medicine Cardiovascular Disease; ATTEND Internal Medicine Cardiovascular Disease